=== PATIENT | female | born 1985 | race Caucasian/White ===

== ENCOUNTER 2017-10-19 09:35 | Inpatient (IN) | payer OTHER ==
[~2017-10-19] VITALS: Ht 162.6 cm; Wt 76.2 kg
[~2017-10-19 09:35] MED LIST: IBUP-2354 PO; PNV1TABL54 PO
[2017-10-19] MEDS ORDERED: RINGERS SOLUTION,LACTATED 1,000 ML IV ONE (09:47)
[2017-10-19] MEDS ORDERED: CITRIC ACID/SODIUM CITRATE 30 ML SOLUTION UDCUP PO ONE (10:00)
[2017-10-19] MEDS ORDERED: METOCLOPRAMIDE HCL 5 MG/ML 2 ML VIAL IVP ONE (10:00)
[2017-10-19 10:50] LABS: BASOPHILS % (AUTO) 0.2 % (0.0-2.0); EOSINOPHILS % (AUTO) 0.7 % (1.0-6.0); HEMOGLOBIN 12.6 g/dL (12.0-16.0); LYMPHOCYTES # (AUTO) 2.1 K/uL (1.0-4.8); LYMPHOCYTES % (AUTO) 16.3 % (22.0-44.0); MEAN CORPUSCULAR HEMOGLOBIN 32.1 pg (26.0-34.0); MEAN CORPUSCULAR HGB CONC 33.9 G/dL (31.0-37.0); MEAN CORPUSCULAR VOLUME 95 fL (80-100); MONOCYTES # (AUTO) 1.2 K/uL (0.1-1.0); MONOCYTES % (AUTO) 8.9 % (2.0-9.0); NEUTROPHILS # (AUTO) 9.6 K/uL (1.8-7.7); NEUTROPHILS % (AUTO) 73.9 % (40.0-70.0); PLATELET COUNT (AUTO) 236 K/uL (150-450); RED BLOOD CELL COUNT(AUTO) 3.91 MIL/uL (4.00-5.20); RED CELL DISTRIBUTION WIDTH 13.3 % (11.5-14.5)
[2017-10-19] MEDS ORDERED: CeFAZolin 2 GM/DEXTROSE 50 ML IV ONE (10:53)
[2017-10-19] MEDS ORDERED: FentaNYL CITRATE-PF 100 MCG/2 ML VIAL ONE (10:54)
[2017-10-19] MEDS ORDERED: MORPHINE SULFATE/PF 1 MG/ML 10 ML AMP ONE (10:54)
[2017-10-19] MEDS ORDERED: NALBUPHINE HCL 10 MG/ML VIAL IVP PRN (13:30)
[2017-10-19] MEDS ORDERED: DiphenhydrAMINE HCL 50 MG/ML VIAL IVP PRN ×2 (13:30)
[2017-10-19] MEDS ORDERED: NALOXONE HCL 0.4 MG/ML VIAL IVP PRN (13:30)
[2017-10-19] MEDS ORDERED: ONDANSETRON HCL 4 MG/2 ML VIAL IVP PRN ×2 (13:30)
[2017-10-19] MEDS ORDERED: MEPERIDINE-PF 25 MG/ML SYRINGE IVP PRN (13:30)
[2017-10-19] MEDS ORDERED: DEXAMETHASONE SOD PHOS 4 MG/ML VIAL IVP PRN (13:30)
[2017-10-19] MEDS ORDERED: ACETAMINOPHEN 1000 MG/ISO-OSM 100 ML IV ONE ×2 (13:30→14:30)
[2017-10-19] MEDS ORDERED: FentaNYL CITRATE-PF 100 MCG/2 ML VIAL IVP PRN ×3 (13:30)
[2017-10-19] MEDS ORDERED: ACETAMINOPHEN/CODEINE 300-30 MG TABLET PO PRN ×2 (14:00)
[2017-10-19] MEDS ORDERED: LANOLIN 7 GM OINTMENT TP PRN (14:00)
[2017-10-19] MEDS: NALBUPHINE HCL 10 MG/ML VIAL IVP SCH (16:41)
[2017-10-19] MEDS: DEXTROSE 5%-0.45% SODIUM CHL 1,000 ML IV SCH (21:05)
[2017-10-19] MEDS: ACETAMINOPHEN 1000 MG/ISO-OSM 100 ML IV SCH (22:37)
[2017-10-20] MEDS: NALBUPHINE HCL 10 MG/ML VIAL IVP SCH ×2 (00:01→05:38)
[2017-10-20] MEDS: DEXTROSE 5%-0.45% SODIUM CHL 1,000 ML IV SCH ×2 (02:19→07:02)
[2017-10-20] MEDS ORDERED: ONDANSETRON HCL 4 MG/2 ML VIAL IVP ONE (05:46)
[2017-10-20] MEDS ORDERED: DEXAMETHASONE SOD PHOS 4 MG/ML VIAL IVP ONE (05:46)
[2017-10-20] MEDS ORDERED: EPHEDrine SULFATE 50 MG/ML VIAL IM ONE (05:46)
[2017-10-20] MEDS ORDERED: GLUCAGON,HUMAN RECOMBINANT 1 MG VIAL IVP ONE (05:46)
[2017-10-20] MEDS ORDERED: PHENYLEPHRINE HCL 10 MG/ML VIAL IVP ONE (05:46)
[2017-10-20] MEDS: ACETAMINOPHEN 1000 MG/ISO-OSM 100 ML IV SCH (06:37)
[2017-10-20] MEDS: IBUPROFEN 800 MG TABLET PO SCH ×3 (06:38→18:41)
[2017-10-20 07:41] VITALS: BP 109/56
[2017-10-20] MEDS: MAGNESIUM HYDROXIDE SUSPENSION 30 ML UDCUP PO SCH ×2 (08:51→21:30)
[2017-10-21] MEDS: IBUPROFEN 800 MG TABLET PO SCH ×4 (02:22→19:52)
[2017-10-21] MEDS: MAGNESIUM HYDROXIDE SUSPENSION 30 ML UDCUP PO SCH (21:00)
[2017-10-22] MEDS: IBUPROFEN 800 MG TABLET PO SCH ×2 (01:52→07:38)
[2017-10-22] MEDS: MAGNESIUM HYDROXIDE SUSPENSION 30 ML UDCUP PO SCH (07:35)
[2017-10-22] MEDS ORDERED: ACET1TAB12 PO (09:12)
[2017-10-22] MEDS ORDERED: IBUP-2071 PO ×2 (09:14→09:18)
[2017-10-22] MEDS ORDERED: DSS100 PO (09:16)
== END 2017-10-22 11:15 | disposition home or self-care (01) | DRG 766 ==
LOC: OBSVTOIN 09:35 → 4S 09:35
PROVIDERS: ADMIT Obstetrics & Gynecology; ATTEND Obstetrics & Gynecology
PROC: 10D00Z1 Extraction of Products of Conception, Low, Open Approach (ICD-10-PCS; principal; 2017-10-19)
PROC: 4A1HXCZ Monitoring of Products of Conception, Cardiac Rate, External Approach (ICD-10-PCS; 2017-10-19)
DX: O34.211 Maternal care for low transverse scar from previous cesarean delivery (principal); Z37.0 Single live birth; Z3A.39 39 weeks gestation of pregnancy; Z79.899 Other long term (current) drug therapy
CPT/HCPCS: 86850; 86900; 86901; 87081; J0131; J0690; J1100; J1610; J2300; J2370; J2405; J2765; J3010; J3490; J7120